=== PATIENT | male | born 1980 | race Caucasian/White ===

== ENCOUNTER 2019-12-29 12:40 | Emergency (ER) | payer OTHER, SELFPAY ==
[2019-12-29 12:55] VITALS: BP 135/60; PULSE 88; RESP 20; TEMP 36.7; O2SAT 99; BMI 31.9
--- NOTE | 2019-12-29 12:55 | DI.RAD.S_ITS ---
PROCEDURE: XR KNEE LT 3V INDICATIONS: Hurt knee playing soccer, heard pop. TECHNIQUE: 3 views of the knee were acquired. COMPARISON: [facility], , KNEE 1-2 VIEWS LEFT, 03/01/2016, 19:44. FINDINGS: Bones: No fractures or dislocations. No suspicious bony lesions. Soft tissues: There is a mild to moderate joint effusion. No suspicious soft tissue calcifications. IMPRESSION: Mild to moderate joint effusion. No acute bony injury is seen. If there is strong clinical suspicion for internal derangement of this joint, please consider a dedicated MRI for further evaluation (assuming that there is no contraindication to MRI). Dictated by: Philip Morris M.D. on 12/29/2019 at 12:35 Approved by: Philip Morris M.D. on 12/29/2019 at 12:36
[2019-12-29] MEDS: ACETAMINOPHEN 325 MG TABLET 975 MG PO (15:00)
--- NOTE | 2019-12-29 15:24 | ED_ITS ---
HPI - Extremity Injury (Lower) <MINISTERIO Vincent - Last Filed: 12/29/19 17:10> General Chief Complaint: Extremity Injury, Lower Stated Complaint: patient states twisted left knee Time Seen by Provider: 12/29/19 15:21 Source: patient Mode of arrival: Ambulatory Limitations: no limitations History of Present Illness HPI Narrative: This is 39-year-old male, nonsmoker, who presents to ED with friend with chief complain of severe left knee pain and some tingling and numbness down to his leg. 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 Patient reports he was playing soccer while wearing knee brace on affected leg and does not remember exact mechanism of injury during fall but he felt as his kneecap was displaced and immediately returned back to the normal position. Friend witnessed patient stepped on a water bottle and his body swivel 360 degree while his left foot is planted on the ground. Patient reports he has history of left ACL injury in the past but had not had surgical repair done but had physical therapy on affected leg as a treatment. Patient reports greater than 10/10 pain. Pain is all around the patella and posterior knee. Patient reports is able to move his toes without difficulty and intact sensation. Patient is resting his affected leg elevated and extended with ice on top of his patella which is maximum comfort position at this time. Patient reports increasing pain with any little movements at this time. Patient denies any discomfort in his ankle, midfoot, hips at this time. Related Data Previous Rx's Medication Instructions Recorded hydrocodone-acetaminophen [[place]] 1 tab PO Q8H PRN #14 tab 12/29/19 Allergies Allergy/AdvReac Type Severity Reaction Status Date / Time No Known Drug Allergies Allergy Verified 12/29/19 13:00 Review of Systems <MINISTERIO Vincent - Last Filed: 12/29/19 17:10> Review of Systems Narrative: General: Denies fever, chills, fatigue, malaise, sweats. HEENT: Denies sinus pain, ear pain, sore throat, difficulty swallowing, dizziness. Respiratory: Denies dyspnea, cough, wheezing, hemoptysis, sputum. Cardiovascular: Denies chest pain, palpitations, orthopnea, edema. Gastrointestinal: Denies nausea, vomiting, abdominal pain, diarrhea, constipation, melena. : Denies dysuria, frequency, incontinence, hematuria, urinary retention. Musculoskeletal: See HPI Skin: Denies rash, skin lesions, or other. Neurologic: Denies weakness, headache, numbness, change in speech, confusion, seizures, incoordination. Psychiatric: No concerning psychosocial issues. 12-point review of systems is negative except for those stated above. Patient History <MINISTERIO Vincent - Last Filed: 12/29/19 17:10> Medical History Injury of anterior cruciate ligament (Acute) Social History Smoking Status: Never smoker Smoking Status: Never smoker alcohol intake frequency: other Substance Use Type: does not use Exam <MINISTERIO Vincent - Last Filed: 12/29/19 17:10> Narrative Exam Narrative: General appearance: well developed, well nourished, in no acute distress. Head: normocephalic, atraumatic, no scalp lesions, non-tender. ENT: Hearing grossly intact. Nose without bleeding, purulent discharge or deviation. Mucous membrane moist, no mucosal lesion. Throat without erythema, tonsillar hypertrophy or exudate. Uvula in midline, airway patent. Neck/Thyroid: neck supple, full range of motion, no visible masses or meningeal signs. No JVD, non-tender without lymphadenopathy. Skin: no suspicious rashes, lesions over visible areas. Warm and dry and appropriate color for ethnicity. Heart: no clubbing, no cyanosis, no edema. Lungs: Breathing even and unlabored. No stridor. No accessory muscles used. Able to speak in full sentences. Chest: normal shape and expansion. Abdomen: non-obese, non-distended. Neurologic: alert and oriented. Cognitive exam, [employer] and PNS grossly intact on informal exam. Psych: good eye contact, normal affect. Initial Vital Signs Initial Vital Signs: Vital Signs Temperature 98.1 F 12/29/19 12:55 Pulse Rate 88 12/29/19 12:55 Respiratory Rate 20 12/29/19 12:55 Blood Pressure 135/60 12/29/19 12:55 Pulse Oximetry 99 12/29/19 12:55 Extrem Left lower extremity: knee Details: normal to inspection, tenderness, swelling Location: of the patella, of the pre-patellar area and of the infrapatellar area, abnormal ROM Details: pain with active ROM, pain with passive ROM and with range as follows (very limited ROM due to pain of flexion, extention) and knee ligament exam abnormal Details: anterior drawer test Details: pain noted, posterior drawer test Details: pain noted, valgus stress test Details: pain noted, varus stress test Details: pain noted and Kamari?s test (painful, unable to fully exam); no deformity, ankle Details: abnormal to inspection; no tenderness and no swelling and foot Details: toes with normal ROM, no edema, vascular exam Details: dorsalis pedis pulse present and motor-sensory exam Details: light-touch normal; no tenderness <Jony Baltazar MD - Last Filed: 12/29/19 20:51> Initial Vital Signs Initial Vital Signs: Vital Signs Temperature 98.1 F 12/29/19 12:55 Pulse Rate 88 12/29/19 12:55 Respiratory Rate 20 12/29/19 12:55 Blood Pressure 135/60 12/29/19 12:55 Pulse Oximetry 99 12/29/19 12:55 Procedures <MINISTERIO Vincent - Last Filed: 12/29/19 17:10> Orthopedic Splinting/Casting Injury #1: Side: left Lower Extremity Injury Location: knee Lower Extremity Immobilizer: knee immobilizer Other Orthopedic Equipment: crutches Post splinting neuro exam: intact Post splinting vascular exam: intact Placed by: Nursing Scores <MINISTERIO Vincent - Last Filed: 12/29/19 17:10> GCS Kristofer coma scale eye opening: Spontaneous [place] coma scale verbal response: Orientated [place] coma scale motor response: Obey commands Kristofer coma scale total score: 15 Course <MINISTERIO Vincent - Last Filed: 12/29/19 17:10> Orders Ordered: ED Orders 12/29/19 12:55 XR knee LT 3V Stat Discontinued Medications Acetaminophen (Tylenol) 975 mg PO NOW ONE Stop: 12/29/19 14:49 Last Admin: 12/29/19 15:00 Dose: 975 mg Documented by: RIAZ Hydrocodone Bitart/Acetaminophen ([place] 5/325) 1 tab PO NOW ONE Stop: 12/29/19 16:08 Last Admin: 12/29/19 16:20 Dose: 1 tab Documented by: RIAZ Ibuprofen (Advil) 400 mg PO NOW ONE Stop: 12/29/19 16:08 Last Admin: 12/29/19 16:20 Dose: 400 mg Documented by: RIAZ Vital Signs Vital signs: Vital Signs - 8 hr 12/29/19 12:55 12/29/19 16:49 Temperature 98.1 F Pulse Rate 88 80 Respiratory Rate 20 16 Blood Pressure 135/60 Blood Pressure [Right Arm] 141/97 H Pulse Oximetry 99 97 <Jony Baltazar MD - Last Filed: 12/29/19 20:51> Orders Ordered: ED Orders 12/29/19 12:55 XR knee LT 3V Stat Discontinued Medications Acetaminophen (Tylenol) 975 mg PO NOW ONE Stop: 12/29/19 14:49 Last Admin: 12/29/19 15:00 Dose: 975 mg Documented by: RIAZ Hydrocodone Bitart/Acetaminophen ([place] 5/325) 1 tab PO NOW ONE Stop: 12/29/19 16:08 Last Admin: 12/29/19 16:20 Dose: 1 tab Documented by: RIAZ Ibuprofen (Advil) 400 mg PO NOW ONE Stop: 12/29/19 16:08 Last Admin: 12/29/19 16:20 Dose: 400 mg Documented by: RIAZ Vital Signs Vital signs: Vital Signs - 8 hr 12/29/19 12:55 12/29/19 16:49 Temperature 98.1 F Pulse Rate 88 80 Respiratory Rate 20 16 Blood Pressure 135/60 Blood Pressure [Right Arm] 141/97 H Pulse Oximetry 99 97 MDM - Extremity Injury (Lower) <MINISTERIO Vincent - Last Filed: 12/29/19 17:10> Differential Diagnosis Differential diagnosis: Likely acute internal derangement of knee, ankle fracture and other (dislocation of the knee) Medical Records Attestation: I reviewed the patient's medical records. Imaging Data XR-Knee LT: Radiologist's Impression: [address] [address] XRay Report Signed Patient: Moris Barrientos WMR#: [id number] : 1980Acct:[id number] Age/Sex: 39 / MDate of Service: 12/29/19 Loc: ED Accession Number: [id number] Procedure: XR knee LT 3V Ordering Provider: Jony Baltazar MD PROCEDURE: XR KNEE LT 3V INDICATIONS: Hurt knee playing soccer, heard pop. TECHNIQUE: 3 views of the knee were acquired. COMPARISON: [facility], , KNEE 1-2 VIEWS LEFT, 03/01/2016, 19:44. FINDINGS: Bones: No fractures or dislocations. No suspicious bony lesions. Soft tissues: There is a mild to moderate joint effusion. No suspicious soft tissue calcifications. IMPRESSION: Mild to moderate joint effusion. No acute bony injury is seen. If there is strong clinical suspicion for internal derangement of this joint, please consider a dedicated MRI for further evaluation (assuming that there is no contraindication to MRI). Dictated by: Philip Morris M.D. on 12/29/2019 at 12:35 Approved by: Philip Morris M.D. on 12/29/2019 at 12:36 MDM Narrative Medical decision making narrative: Left knee x-ray does not show acute findings such as fractures or dislocation. Patient has significant discomfort around the left patella and limited active and passive range of motion due to significant pain. Patient has intact distal pedal pulse and able to move his toes with intact sensation for light touch however, patient reports tingling and numbness to affected foot. Affected leg was stabilized on knee immobilizer for comfort and patient discharged to home with crutches with teaching. Advised to manage his pain with [id number] Tylenol and or Motrin and for severe pain with [place]. Patient advised to follow up with his primary care physician for possible further advanced imaging test and a referral to orthopedist. Return precautions were discussed with the patient such as decreased pulses, pale in color or cap refill and patient verbalized understanding and in agreement with treatment plan. Discharge Plan Departure Patient Disposition: Home Clinical Impression: Left knee sprain Qualifiers: Encounter type: initial encounter Involved ligament of knee: unspecified ligament Qualified Code(s): S83.92XA - Sprain of unspecified site of left knee, initial encounter Discharge Date/Time: 12/29/19 17:05 Instructions: DI for Knee Pain Activity Restrictions/Additional Instructions: You have been diagnosed with [left knee injury likely ligamentous injury. X-ray test on your left knee does not show fracture is or dislocations but mild to moderate joint effusion. We are providing knee immobilizer and crutches for nonweightbearing on affected knee for comfort. You were medicated with 1 [place], Tylenol, ibuprofen while in ED.]. What to do: *Take your medications as directed. Please use RICE therapy. Frequently 15- 20 minutes at a time unaffected knee for next 24-48 hours. Elevate affected leg for swelling. Use immobilizer for comfort and preventing flexion of your knee which can cause increasing in pain. Please take [id number] Tylenol 650- 1000 mg up to 4000 mg in 24 hour as needed for pain. Ibuprofen 400-600 mg 3 to 4 times a day with food. [place] is strong narcotic pain medications. It can cause constipation, drowsiness and addiction so please take precautions. This medication has been transmitted to [email or web address] in [place]. *Follow up with your primary care provider in 2-3 days, call for an appointment. You may need advanced imaging test on affected knee if her pain persists. You may need a referral to orthopedist for an evaluation and further treatment. Let them know you were seen in the ED and that we asked you to be seen in follow up. *Return to ED if you have any new, worsening, or concerning symptoms, such as [chest pain, breathing difficulty, unable to tolerate fluids, increasing numbness/weakness/ tingling or pale discoloration, slowed cap refills on left foot]. Prescriptions: New hydrocodone-acetaminophen [[place]] 5-325 mg tablet 1 tab PO Q8H PRN (Reason: pain) Qty: 14 RF: 0 Referrals: [facility] [Provider Group] [facility] [Outside]
[2019-12-29] MEDS: HYDROCODONE/ACET 5/325 TABLET 1 TAB PO (16:20)
[2019-12-29] MEDS: IBUPROFEN 400 MG TABLET PO (16:20)
[2019-12-29 16:49] VITALS: BP 141/97; PULSE 80; RESP 16; O2SAT 97
== END 2019-12-29 17:05 | disposition home or self-care (01) ==
PROVIDERS: Emergency Provider Nurse Practitioner Family
DX: S83.92XA Sprain of unspecified site of left knee, initial encounter (principal)
CPT/HCPCS: 73562; 99283